=== PATIENT | female | born 1980 | race Two or more races ===

== ENCOUNTER 2016-06-15 11:27 | Emergency (ER) | payer OTHER ==
[2016-06-15 11:38] VITALS: BP 131/86; PULSE 77; TEMP 98.2; BMI 37.6
--- NOTE | 2016-06-15 13:38 | PDOC ---
History of Present Illness - General Chief Complaint: Edema Stated Complaint: SWOLLEN LIP Time Seen by Provider: 06/15/16 13:00 History Source: Patient Exam Limitations: No Limitations - History of Present Illness Initial Comments: 06/16/16 18:02 Chief complaint: Raised tender area along mustache with swelling of the left upper lip History of present illness: Patient is a 35-year-old male here today complaining of a tender raised area mustache area left side with swelling to his left upper lip for the last 2 days. Patient reports he does go to a barbershop as mustache trimmed. Patient reports that he tried to pop the area however it did not come to a head. Patient thinks that he pulled out a tiny here that was embedded in area earlier today. Patient denies any fever or redness around area involved. Timing/Duration: getting worse (left upper mustache) Severity: mild Modifying Factors: improves with: other Associated Symptoms: reports: other (raised tender area left upper mustache area ) Past History - Past Medical History Allergies/Adverse Reactions: Allergies Allergy/AdvReac Type Severity Reaction Status Date / Time No Known Allergies Allergy Verified 06/15/16 11:38 Home Medications: Ambulatory Orders Hydrocortisone 2.5% Lotion [Hytone 2.5% Lotion -] 1 applic TP BID #1 bottle MDD 2 06/15/16 Other medical history: NONE - Psycho/Social/Smoking Cessation Hx Anxiety: No Suicidal Ideation: No Smoking History: Never smoked Hx Alcohol Use: Yes (SOCIAL) Drug/Substance Use Hx: No Substance Use Type: None Review of Systems - Review of Systems Able to Perform ROS?: Yes Constitutional: No: Symptoms Reported HEENTM: No: Symptoms Reported Respiratory: No: Symptoms reported Cardiac (ROS): No: Symptoms Reported ABD/GI: No: Symptoms Reported : No: Symptoms Reported Musculoskeletal: No: Symptoms Reported Integumentary: Yes: Other (raised tender area left mustache area) Neurological: No: Symptoms reported *Physical Exam - Vital Signs Last Vital Signs Temp Pulse Resp BP Pulse Ox 98.2 F 77 20 131/86 96 06/15/16 11:35 06/15/16 11:35 06/15/16 11:35 06/15/16 11:35 06/15/16 11:35 - Physical Exam General Appearance: Yes: Appropriately Dressed Neck: negative: Lymphadenopathy (R), Lymphadenopathy (L) Respiratory/Chest: positive: Lungs Clear, Normal Breath Sounds. negative: Chest Tender, Respiratory Distress Cardiovascular: positive: Regular Rhythm, Regular Rate, S1, S2 Integumentary: positive: Other (pea size raised tender area left upper mustache area with no erythema noted ) Neurologic: positive: Alert, Normal Response Medical Decision Making - Medical Decision Making 06/16/16 18:04 Patient is a 35-year-old male here today complaining of a tender raised area mustache area left side with swelling to his left upper lip for the last 2 days. Patient reports he does go to a [employer] as mustache trimmed. Patient reports that he tried to pop the area however it did not come to a head. Patient thinks that he pulled out a tiny here that was embedded in area earlier today. Patient denies any fever or redness around area involved. PseudoFolliculitis PLAN: hytone 2.5 % lotion appy bid until resolved follow up with [employer] 06/16/16 18:05 *DC/Admit/Observation/Transfer Diagnosis at time of Disposition: Pseudofolliculitis barbae - Discharge Dispostion Disposition: HOME Condition at time of disposition: Stable - Prescriptions Prescriptions: Hydrocortisone 2.5% Lotion [Hytone 2.5% Lotion -] 1 applic TP BID #1 bottle MDD 2 - Referrals Referrals: Eric[facility] [Non Staff, Medical] - - Patient Instructions Additional Instructions: Follow-up with [employer] as soon as possible Avoid shaving area involved Return to emergency room if area becomes red and increased swelling of area is noted Patient voiced understanding of discharge instructions and all questions were answered
== END 2016-06-15 13:40 | disposition home or self-care (01) ==
LOC: JERFT 11:27
DX: L73.1 Pseudofolliculitis barbae (principal)
CPT/HCPCS: 99281-25

== ENCOUNTER 2018-05-15 19:47 | Emergency (ER) | payer OTHER ==
[2018-05-15 20:06] VITALS: BP 167/83; PULSE 92; TEMP 98.8; BMI 42.5
--- NOTE | 2018-05-15 20:13 | PDOC ---
Rapid Medical Evaluation Chief Complaint: Chest Pain Time Seen by Provider: 05/15/18 20:00 Medical Evaluation: Allergies Allergy/AdvReac Type Severity Reaction Status Date / Time No Known Allergies Allergy Verified 06/15/16 11:38 Vital Signs Temp Pulse Resp BP Pulse Ox 98.8 F 92 H 18 167/83 97 05/15/18 20:00 05/15/18 20:00 05/15/18 20:00 05/15/18 20:00 05/15/18 20:00 05/15/18 20:09 I have performed a brief in-person evaluation of this patient. The patient presents with a chief complaint of: morbid obese PT with complain of 1 week h/o mid-sternal CP. report pain has been intermittent and localized to left side of mid-sternum. Denies SOB, dizziness, sweats, N/V Pertinent physical exam findings: A&O x 3. mild reproduceable tenderness to left 2nd and 3rd costochodral region. heart: RRR. lungs CTAB I have ordered the following: EKG, CBC,CMP, cardiac profile. CXR The patient will proceed to the ED for further evaluation Discharge Disposition - Diagnosis Costochondral chest pain - Discharge Dispostion Condition at time of disposition: Stable - Referrals - Patient Instructions - Post Discharge Activity
[2018-05-15 20:27] LABS: BASO % 0.5 % (0-2.0); HEMATOCRIT 41.1 % (35.4-49); HEMOGLOBIN 14.5 GM/dL (11.7-16.9); LYMPH % 22.9 % (8-40); MCH 30.2 pg (25.7-33.7); MCHC 35.4 g/dl (32.0-35.9); MEAN CELL VOLUME 85.4 fl (80-96); MEAN PLT VOLUME 9.4 fl (7.5-11.1); MONO % 6.1 % (3.8-10.2); NEUT % 68.5 % (42.8-82.8); PLATELET COUNT 210 K/MM3 (134-434); RBC 4.81 M/mm3 (4.00-5.60); RDW 13.1 % (11.9-15.9); WHITE BLOOD COUNT 10.3 K/mm3 (4.0-10.0)
--- NOTE | 2018-05-15 20:58 | PDOC ---
History of Present Illness - General Chief Complaint: Chest Pain Stated Complaint: CHEST PAIN Time Seen by Provider: 05/15/18 20:00 - History of Present Illness Initial Comments: 05/15/18 20:53 37-year-old male without comorbidities presents for evaluation of one week of chest pain. He points to the left sternal border as the area of his discomfort. He states he recently started going to the gym and has been doing heavy workouts but over the last week he noticed this pain off and on over the last week or so. He has no family history of coronary artery disease. No sudden cardiac with first-degree relatives. No radiation of symptoms neck jaw back or arm pain. No systemic symptoms 05/15/18 20:58 Past History - Past Medical History Allergies/Adverse Reactions: Allergies Allergy/AdvReac Type Severity Reaction Status Date / Time No Known Allergies Allergy Verified 06/15/16 11:38 Home Medications: Ambulatory Orders Hydrocortisone 2.5% Lotion [Hytone 2.5% Lotion -] 1 applic TP BID #1 bottle MDD 2 06/15/16 COPD: No - Suicide/Smoking/Psychosocial Hx Smoking History: Never smoked Have you smoked in the past 12 months: No Information on smoking cessation initiated: No Hx Alcohol Use: No Drug/Substance Use Hx: No Substance Use Type: None Review of Systems - Review of Systems Constitutional: No: Chills, Diaphoresis, Fever, Malaise, Night Sweats Cardiac (ROS): Yes: Chest Pain Musculoskeletal: No: Back Pain Neurological: No: Numbness, Paresthesia, Tingling *Physical Exam - Vital Signs Last Vital Signs Temp Pulse Resp BP Pulse Ox 98.8 F 92 H 18 167/83 97 05/15/18 20:00 05/15/18 20:00 05/15/18 20:00 05/15/18 20:00 05/15/18 20:00 - Physical Exam Comments: 05/15/18 20:55 HEAD: NC/AT EYES: Conjuntiva clear Ears: Canals and TM's normal NOSE: No d/c THROAT: Moist mucous membrances, oral pharanx clear, uvula midline NECK: Supple without adenopathy CARDIAC: S1 S2 LUNGS: CTA Full and Equal breath sounds ABDOMEN: Soft NT ND MS: Full ROM in all joints without edema NEUROLOGIC: No gross sensory or motor deficits, NVID SKIN: Normal color and temperature no lesions or rashes Moderate Sedation - Procedure Monitoring Vital Signs: Procedure Monitoring Vital Signs Temperature 98.8 F 05/15/18 20:00 Pulse Rate 92 H 05/15/18 20:00 Respiratory Rate 18 05/15/18 20:00 Blood Pressure 167/83 05/15/18 20:00 O2 Sat by Pulse Oximetry (%) 97 05/15/18 20:00 ED Treatment Course - LABORATORY CBC & Chemistry Diagram: 05/15/18 20:16 05/15/18 20:16 - ADDITIONAL ORDERS Additional order review: 05/15/18 20:16 RBC 4.81 MCV 85.4 MCHC 35.4 RDW 13.1 MPV 9.4 Neutrophils % 68.5 Lymphocytes % 22.9 Monocytes % 6.1 Eosinophils % 2.0 Basophils % 0.5 Medical Decision Making - Medical Decision Making 05/15/18 20:55 chest x-ray shows no infiltrate or mediastindening. Esophagus is midline without shift.EKG shows a flipped T-wave in V1 which is not significant given no other leads have flipped T waves. ST elevation in V3 to small boxes without any reciprocal depression or infarct pattern normal rhythm. No blocks. Given the family history or lack thereof and 1 week of symptoms I have a low index of suspicion of cardiogenic chest pain. I will let him go with the diagnosis of costochondritis after a negative troponin with cardiology follow-up. 05/15/18 21:39 CPK MB normal will have pt d/c with cardiology f/u *DC/Admit/Observation/Transfer Diagnosis at time of Disposition: Chest pain, non-cardiac Diagnosis at time of Disposition: (Ruled Out): Costochondral chest pain - Discharge Dispostion Disposition: HOME Condition at time of disposition: Stable Decision to Admit order: No - Referrals Referrals: Bartolome Olivarez MD [Staff Physician] - - Patient Instructions Printed Discharge Instructions: DI for Atypical Chest Pain, DI for Chest Pain Additional Instructions: Cardiac workup today was normal. Follow-up with cardiology in one to 2 days for further evaluation and treatment options and return to the emergency room for worsening symptoms. - Post Discharge Activity
[2018-05-15 21:03] LABS: ALBUMIN 4.2 g/dl (3.4-5.0); ALK PHOS 87 U/L (45-117); ANION GAP 8 MMOL/L (8-16); BILIRUBIN,TOTAL 0.3 mg/dL (0.2-1); BLOOD UREA NITROGEN 22 mg/dL (7-18); CHLORIDE 104 mmol/L (98-107); CO2 27 mmol/L (21-32); CREATININE 1.2 mg/dL (0.55-1.3); GLUCOSE,RANDOM 130 mg/dL (74-106); POTASSIUM 3.7 mmol/L (3.5-5.1); SGOT/AST 35 U/L (15-37); SGPT/ALT 54 U/L (13-61); SODIUM 139 mmol/L (136-145); TOT PROT 7.6 g/dl (6.4-8.2)
--- NOTE | 2018-05-16 12:06 | EKG ---
Test Reason : Blood Pressure : / mmHG Vent. Rate : 094 BPM Atrial Rate : 094 BPM P-R Int : 194 ms QRS Dur : 092 ms QT Int : 354 ms P-R-T Axes : 059 059 064 degrees QTc Int : 442 ms NORMAL SINUS RHYTHM POSSIBLE LEFT ATRIAL ENLARGEMENT BORDERLINE ECG NO PREVIOUS ECGS AVAILABLE Confirmed by NARCISO ROD MD ([id number]) on 05/16/2018 12:06:06 PM Referred By: Confirmed By:NARCISO ROD MD
== END 2018-05-15 21:43 | disposition home or self-care (01) ==
LOC: EDSEX → JERFT 19:47
DX: R07.9 Chest pain, unspecified (principal)
CPT/HCPCS: 36415; 71046-TC-FY; 80053; 82550; 82553; 84484; 85025; 93005; 93010; 99281-25

== ENCOUNTER 2019-04-15 17:20 | Emergency (ER) | payer OTHER ==
[2019-04-15 17:37] VITALS: BP 155/100; PULSE 78; TEMP 97.9; BMI 41.3
--- NOTE | 2019-04-15 19:00 | PDOC ---
History of Present Illness - General Chief Complaint: Wound Stated Complaint: BLEEDING Time Seen by Provider: 04/15/19 18:39 - History of Present Illness Initial Comments: 04/15/19 18:58 38-year-old male without comorbidities complains of painful bumpy area on his scalp for the last 7 days without systemic symptoms Past History - Past Medical History Allergies/Adverse Reactions: Allergies Allergy/AdvReac Type Severity Reaction Status Date / Time No Known Allergies Allergy Verified 04/15/19 17:36 Home Medications: Ambulatory Orders Hydrocortisone 2.5% Lotion [Hytone 2.5% Lotion -] 1 applic TP BID #1 bottle MDD 2 06/15/16 Mupirocin Ointment [Bactroban 2% Ointment -] 1 applic TP TID 7 Days #1 applic COPD: No Other medical history: DENIES - Immunization History Immunization Up to Date: Yes - Psycho Social/Smoking Cessation Hx Smoking History: Never smoked Have you smoked in the past 12 months: No Information on smoking cessation initiated: No Hx Alcohol Use: No (SOCIAL) Drug/Substance Use Hx: No Substance Use Type: None Review of Systems - Review of Systems Constitutional: No: Fever *Physical Exam - Vital Signs Last Vital Signs Temp Pulse Resp BP Pulse Ox 97.9 F 78 20 155/100 100 04/15/19 17:33 04/15/19 17:33 04/15/19 17:33 04/15/19 17:33 04/15/19 17:33 - Physical Exam 04/15/19 18:58 There are small little superficial crusted areas on the occipital scalp with the excoriated area of bleeding from him scratching there is also one on the right parietal scalp Medical Decision Making - Medical Decision Making 04/15/19 18:59 This appears to be impetigo will treat accordingly and have patient follow-up with dermatology Discharge - Discharge Information Problems reviewed: Yes Clinical Impression/Diagnosis: Pseudofolliculitis barbae, Follicular impetigo Condition: Stable Disposition: HOME - Admission No - Additional Discharge Information Prescriptions: Mupirocin Ointment [Bactroban 2% Ointment -] 1 applic TP TID 7 Days #1 applic - Follow up/Referral Referrals: Salvatore Bolden MD [Primary Care Provider] - Sheron Pedro MD [Staff Physician] - - Patient Discharge Instructions Additional Instructions: Please use the Bactroban ointment as directed and without fail follow-up with dermatology in 2 to 3 days for further evaluation and treatment options. Follow -up with dermatology in 2 to 3 days without fail and return to the emergency room should symptoms worsen. - Post Discharge Activity
== END 2019-04-15 19:07 | disposition home or self-care (01) ==
LOC: JERFT 17:20
DX: L73.1 Pseudofolliculitis barbae (principal); L01.02 Bockhart's impetigo
CPT/HCPCS: 99281-25

== ENCOUNTER 2019-04-19 20:21 | Emergency (ER) | payer OTHER ==
[2019-04-19 20:30] VITALS: BP 157/95; PULSE 86; TEMP 98; BMI 41.1
--- NOTE | 2019-04-19 20:30 | PDOC ---
Rapid Medical Evaluation Chief Complaint: Abrasion Time Seen by Provider: 04/19/19 20:25 Medical Evaluation: Allergies Allergy/AdvReac Type Severity Reaction Status Date / Time No Known Allergies Allergy Verified 04/15/19 17:36 04/19/19 20:28 38 year old male c/o bleeding from scalp . seen in the ER 2 days ago reports that site is bleeding with no significant improvement PE: patient alert abrasion to posterior scalp. some bleeding noted. A: abrasion P; patient to the ER for further management of care. Discharge Disposition - Diagnosis Abrasion - Referrals - Patient Instructions - Post Discharge Activity
--- NOTE | 2019-04-19 22:10 | PDOC ---
History of Present Illness - General Chief Complaint: Abrasion Stated Complaint: ABSCESS Time Seen by Provider: 04/19/19 20:25 History Source: Patient Exam Limitations: No Limitations - History of Present Illness Initial Comments: 04/19/19 22:05 38-year-old male with no past medical history seen here for follicular impetigo April 15, 2019 discharged with Bactroban presents complaining of slowly bleeding area from occiput. Reports area scabbed over, upon washing hair scab falls off and bleeding restarts. Denies headache, direct trauma, shortness of breath, chest pain, dizziness, palpitations, fever or any other complaints. Has not made an appointment with a aircraft sales representative as of yet. ROS: GENERAL/CONSTITUTIONAL: No fever, chills, weakness, dizziness HEAD, EYES, EARS, NOSE AND THROAT: No changes in vision, No ear pain or discharge, No sore throat CARDIOVASCULAR: No chest pain RESPIRATORY: No shortness of breath or cough GASTROINTESTINAL: No pain, nausea, vomiting, diarrhea or constipation GENITOURINARY: No dysuria MUSCULOSKELETAL: No neck or back pain SKIN: Small bleeding area from scalp NEUROLOGIC: No headache, vertigo, loss of consciousness, or loss of sensation PE: GENERAL: well-appearing, NAD HEAD: NCAT EYES: Pupils equal, round and reactive to light, sclera anicteric, conjunctiva clear ENT: pharynx: no erythema, no exudate, uvula midline NECK: supple CHEST: nontender RESP: clear, no w/r/r CARDIO: rrr, no m/g/r ABD: +BS, soft, nontender, non distended BACK: no midline spinal ttp, no CVAT EXTREMITIES: Normal range of motion, no edema NEUROLOGICAL: Normal speech, normal gait SKIN: Slow active bleed noted from tiny wound to occipital scalp, no tenderness to palpation Is this a multiple visit Asthma Patient?: No Past History - Past Medical History Allergies/Adverse Reactions: Allergies Allergy/AdvReac Type Severity Reaction Status Date / Time No Known Allergies Allergy Verified 04/19/19 20:30 Home Medications: Ambulatory Orders Hydrocortisone 2.5% Lotion [Hytone 2.5% Lotion -] 1 applic TP BID #1 bottle MDD 2 06/15/16 Mupirocin Ointment [Bactroban 2% Ointment -] 1 applic TP TID 7 Days #1 applic COPD: No - Immunization History Immunization Up to Date: Yes - Psycho Social/Smoking Cessation Hx Smoking History: Never smoked Have you smoked in the past 12 months: No Hx Alcohol Use: No (SOCIAL) Drug/Substance Use Hx: No Substance Use Type: None *Physical Exam - Vital Signs Last Vital Signs Temp Pulse Resp BP Pulse Ox 98 F 86 18 157/95 97 04/19/19 20:27 04/19/19 20:27 04/19/19 20:27 04/19/19 20:27 04/19/19 20:27 Medical Decision Making - Medical Decision Making 04/19/19 22:08 38-year-old male with slowly bleeding area from occipital scalp. Bleeding controlled with silver nitrate Stable for discharge Advised to follow-up with aircraft sales representative Return to ED if bleeding reoccurs, fever, headache, chills or any concerning symptoms Discharge - Discharge Information Problems reviewed: Yes Clinical Impression/Diagnosis: Abrasion Condition: Stable Disposition: HOME - Admission No - Follow up/Referral Referrals: Salvatore Bolden MD [Primary Care Provider] - - Patient Discharge Instructions Additional Instructions: Avoid scratching your scalp Make an appointment with a aircraft sales representative within 1 week Return to ED if bleeding reoccurs, fever, chills, headache or any concerning symptoms - Post Discharge Activity
== END 2019-04-19 22:15 | disposition home or self-care (01) ==
LOC: JERFT 20:21
DX: S00.01XA Abrasion of scalp, initial encounter (principal); L01.02 Bockhart's impetigo; X58.XXXA Exposure to other specified factors, initial encounter; Y93.89 Activity, other specified; Y92.89 Other specified places as the place of occurrence of the external cause; Y99.8 Other external cause status
CPT/HCPCS: 99282-25